=== PATIENT | female | born 1970 | race Caucasian/White ===

== ENCOUNTER → 2017-01-23 | Day surgery (SDC) | payer BC ==
[2016-11-21 09:53] VITALS: BMI 39.0
[2017-01-08 10:05] VITALS: Ht 172.7 cm; Wt 118.2 kg
[~2017-01-23] VITALS: Ht 172.7 cm; Wt 118.2 kg
[~2017-01-23] MED LIST: AMLO-110 PO; ASPI81TA28 PO; BUPIVACAINE 0.25% 2.5MG/ML PF 10 ML VIAL INFIL ONE; CETI10TA84 PO; LIDOCAINE HCL 1% MPF 5 ML VIAL ONE; LOSA1TAB38 PO; MULT-506 PO
--- NOTE | 2017-01-23 12:54 | History & Physical Bridge - [place] ---
H&P Re-Evaluation Bridge Note: I have examined the patient, reviewed the History & Physical and in the interval since the performance of the History & Physical I have noted the following changes of clinical significance: No changes noted
[2017-01-23 13:17] VITALS: TEMP 36.9
--- NOTE | 2017-01-23 13:22 | Discharge Instructions ---
Discharge Instructions Date of Service Jan 23, 2017. Visit Reason for Visit: Low Back Pain Discharge Discharge Diagnosis / Problem: chronic low back pain Discharge Goals Goal(s): Decrease discomfort, Improve function Activity Recommendations Activity Limitations: resume your previous activity Anesthesia . Post Anesthesia Instructions: If you have had General Anesthesia or IV Sedation: * Do not drive today. * Resume driving when surgeon permits. * Do not make important decisions or sign legal documents today. * Call surgeon for: 1. Temperature elevations greater than 101 degrees F. 2. Uncontrollable pain. 3. Excessive bleeding. 4. Persistent nausea and vomiting. 5. Medication intolerance (nausea, vomiting or rash). * For nausea and vomiting use only clear liquids such as: tea, soda, bouillon until nausea subsides, then gradually increase diet as tolerated. * If you have any concerns or questions, call your surgeon's office. If physician is unavailable and it is an emergency, call 911 or go to the nearest emergency room. . Diet Recommendations Recommended Home Diet: resume previous diet Procedures Procedures Performed: LEFTL5-S1 MEDIAL BRANCH Pending Studies Studies pending at discharge: no Medical Emergencies . Who to Call and When: Medical Emergencies: If at any time you feel your situation is an emergency, please call 911 immediately. . Non-Emergent Contact Non-Emergency issues call your: Specialist . . "Provider Documentation" section prepared by Juan Hernandez.
[2017-01-23 13:35] VITALS: BP 125/89; PULSE 60; O2SAT 98
--- NOTE | 2017-01-23 14:05 | OPERATIVE REPORT ---
DATE OF OPERATION: 01/23/2017 PREOPERATIVE DIAGNOSIS: Chronic low back pain, lumbar left L5-S1 facet arthropathy. POSTOPERATIVE DIAGNOSIS: Same. PROCEDURE: Left L5-S1 medial branch blocks. SURGEON: Dr. Juan Hernandez. INDICATIONS: The patient is a 46-year-old white female who presents today with pain and she has it located to the lower left L5-S1 facet area. It is felt to be facet in origin. We will perform medial branch blocks to indeed confirm this as the pain generator of the chronic pain that she has that has not responded to conservative treatments. PHYSICAL EXAMINATION: GENERAL: Pleasant female seated comfortably. MUSCULOSKELETAL: Lumbar paraspinal muscles were palpated. She is tender in the L5-S1 facet area. Point tenderness worse with extension, extension rotation. No problems with flexion. She has normal lower extremity strength. Negative seated straight leg raises. CONSENT: Verbal and written consent was obtained from the patient. Risks and benefits were reviewed. Risks include but are not limited to abscess and allergic reaction. The patient wishes to proceed. PROCEDURE: The patient was taken back to the special procedures room of the [facility] where she was maintained in a prone position. Backside was cleansed with Betadine x3 and a dry sterile dressing was applied. Fluoroscope was used to identify the L5 transverse process and the sacral ala both on the left side. Overlying skin was anesthetized with 2.5 mL of lidocaine 1% at each site. A 25 gauge 3.5 inch spinal needle was then directed under fluoroscopic guidance contacting the bony target at each site, the L5 transverse process junction and the sacral ala. She then underwent injection after negative aspiration of 1 mL of bupivacaine 0.25% at each site. The procedure was well tolerated. DISPOSITION: 1. The patient is taken out into the discharge recovery area where she will be discharged home once discharge criteria have been met. 2. Follow up in the [facility] office in 2-4 weeks. I attest to the content of the Intraoperative Record and any orders documented therein. Any exceptio ns are noted below.
== END | disposition home or self-care (01) ==
LOC: X.SURG 11:33
PROVIDERS: ATTEND Physical Medicine & Rehabilitation
DX: M47.817 Spondylosis without myelopathy or radiculopathy, lumbosacral region (principal); G89.29 Other chronic pain

== ENCOUNTER → 2017-10-13 | Outpatient (CLI) | payer BC ==
[~2017-10-13] MED LIST changes: -BUPIVACAINE 0.25% 2.5MG/ML PF 10 ML VIAL INFIL ONE; -LIDOCAINE HCL 1% MPF 5 ML VIAL ONE
--- NOTE | 2017-10-14 14:25 | MAMMOGRAPHY REPORT ---
BILATERAL DIGITAL SCREENING MAMMOGRAM TOMOSYNTHESIS WITH CAD: 10/13/2017 CLINICAL HISTORY: Routine screening. Patient has no complaints. TECHNIQUE: Breast tomosynthesis in addition to standard 2D mammography was performed. Additional 2- D right MLO and left exaggerated lateral CC views were obtained. Current study was also evaluated wi th a Computer Aided Detection (CAD) system. COMPARISON: Comparison is made to exams dated: 10/11/2016 mammogram - [facility], mammogram, 01/01/2013 mammogram, 12/31/2011 mammogram, and 12/17/2010 mammogram - [facility]. BREAST COMPOSITION: There are scattered areas of fibroglandular density in both breasts. FINDINGS: The parenchymal pattern is similar to prior mammograms. No developing mass, architectural distortion or cluster of suspicious microcalcifications is seen in either breast. IMPRESSION: ACR BI-RADS CATEGORY 2: BENIGN There is no mammographic evidence of malignancy. A 1 year screening mammogram is recommended. The pa tient will receive written notification of the results. Approximately 10% of breast cancers are not detected with mammography. A negative mammographic report should not delay biopsy if a clinically suggestive mass is present. Josefina Morse M.D. ay/:10/13/2017 15:10:47 Separator Tender: Alejandra BURKS)(Radha)(BD), [facility] letter sent: Normal 1/2 BI-RADS Code: ACR BI-RADS Category 2: Benign
== END | disposition home or self-care (01) ==
LOC: C.MAMM 09:01
PROVIDERS: ATTEND Family Medicine
DX: Z12.31 Encounter for screening mammogram for malignant neoplasm of breast (principal)